=== PATIENT | female | born 1970 | race Caucasian/White ===

== ENCOUNTER 2020-02-14 11:06 | Day surgery (SDC) | payer BC ==
[2020-02-14 11:48] VITALS: BMI 29.1
[2020-02-14] MEDS ORDERED: PROPOFOL 20 ML ONE (11:51)
[2020-02-14 14:48] VITALS: TEMP 97.7
[2020-02-14 14:54] VITALS: BP 110/65; PULSE 75
--- NOTE | 2020-02-15 15:45 | PATH ---
Surgical Pathology Report Patient Name: MEENU PAULA [facility]. Rec. #: [id number] /Age/Gender: 1970 (Age: 49) / F Account: [id number] Location: [facility] AMBULATORY Taken: 02/14/2020 Received: 02/14/2020 Reported: 02/15/2020 Physicians: Marlon Arroyo M.D. Specimen(s) Received A: SIGMOID POLYP BX B: SIGMOID POLYP # 2 HOT SNARE POLYPECTOMY Clinical History Colon cancer screening Postoperative diagnosis: Sigmoid polyps, small hemorrhoids Final Diagnosis A. SIGMOID, POLYP, BIOPSY: SESSILE SERRATED POLYP. B. SIGMOID POLYP #2, HOT SNARE POLYPECTOMY: TUBULAR ADENOMA. Electronically Signed Trudy Corey M.D. Gross Description A. Received in formalin, labeled "biopsy sigmoid polyp" is a pinedo, irregular portion of soft tissue measuring 0.4 cm. in greatest dimension. The specimen is submitted in toto in one cassette. B. Received in formalin, labeled "sigmoid polyp #2" are 7 pinedo, irregular portions of soft tissue ranging from 0.2-0.4 cm. in greatest dimension. The specimens are submitted in toto in one cassette. /02/14/2020 saudi/02/14/2020
== END 2020-02-14 13:20 | disposition home or self-care (01) ==
LOC: FASU 11:06
PROVIDERS: ATTEND Internal Medicine Gastroenterology
PROC: 0DBN8ZX Excision of Sigmoid Colon, Via Natural or Artificial Opening Endoscopic, Diagnostic (ICD-10-PCS; 2020-02-14)
PROC: 0DBN8ZX Excision of Sigmoid Colon, Via Natural or Artificial Opening Endoscopic, Diagnostic (ICD-10-PCS; principal; 2020-02-14 12:00)
DX: Z12.11 Encounter for screening for malignant neoplasm of colon (principal); D12.5 Benign neoplasm of sigmoid colon; K64.8 Other hemorrhoids
CPT/HCPCS: 84703; 88305-TC